=== PATIENT | male | born 1995 | race Caucasian/White ===

== ENCOUNTER 2017-07-17 02:09 | Emergency (ER) | payer OTHER ==
[~2017-07-17] VITALS: Ht 185.4 cm; Wt 64.3 kg
[2017-07-17 02:17] VITALS: TEMP 36.5; O2SAT 94; Ht 185.4 cm; Wt 64.3 kg
[2017-07-17 02:52] LABS: CREATININE 0.99 mg/dl (0.60-1.40)
[2017-07-17 02:53] LABS: CALCIUM 8.8 mg/dl (8.5-10.1)
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
[2017-07-17 06:39] VITALS: BP 110/76; PULSE 90; O2SAT 94
== END 2017-07-17 06:41 | disposition home or self-care (01) ==
LOC: EDBD 02:09 → C.EDB 02:11
DX: F10.929 Alcohol use, unspecified with intoxication, unspecified (principal); S60.511A Abrasion of right hand, initial encounter; S60.512A Abrasion of left hand, initial encounter; S30.810A Abrasion of lower back and pelvis, initial encounter; S40.219A Abrasion of unspecified shoulder, initial encounter; S00.81XA Abrasion of other part of head, initial encounter; Z04.71 Encounter for examination and observation following alleged adult physical abuse; Y04.2XXA Assault by strike against or bumped into by another person, initial encounter; Y92.29 Other specified public building as the place of occurrence of the external cause; F17.200 Nicotine dependence, unspecified, uncomplicated